=== PATIENT | female | born 1975 | race Caucasian/White ===

== ENCOUNTER → 2018-01-27 | Outpatient (CLI) | payer OTHER | LOC: M RAD 09:51 | DX: Z12.31 Encounter for screening mammogram for malignant neoplasm of breast (principal) | CPT/HCPCS: 77067 ==

== ENCOUNTER → 2018-03-26 | Outpatient (REF) | payer OTHER ==
[2018-03-26 18:52] LABS: APPEARANCE, URINE HAZY (CLEAR); BACTERIA, URINE AUTO NEGATIVE (NEGATIVE); BILIRUBIN, URINE AUTO NEGATIVE (NEGATIVE); BLOOD, URINE BLOOD 1+ (NEGATIVE); COLOR, URINE YELLOW (YELLOW); GLUCOSE, URINE (UA) AUTO NEGATIVE (NEGATIVE); KETONE, URINE AUTO NEGATIVE (NEGATIVE); LEUKOCYTE ESTERASE, URINE AUTO 1+ (NEGATIVE); NITRITE, URINE AUTO NEGATIVE (NEGATIVE); PROTEIN, URINE AUTO NEGATIVE (NEGATIVE); RBC, URINE AUTO 1 /HPF (0-3); SQUAMOUS EPITHELIAL CELL UR AU 2 /HPF (0-6); UROBILINOGEN, URINE AUTO 0.2 mg/dL (0.0-2.0); WBC, URINE AUTO 3 /HPF (0-3)
== END ==
LOC: M SMT 17:08
DX: N39.3 Stress incontinence (female) (male) (principal)

== ENCOUNTER 2019-08-12 12:39 | Inpatient (IN) | payer OTHER ==
[~2019-08-12] VITALS: Ht 165.1 cm; Wt 88.5 kg
[2019-08-12 13:15] LABS: BASO % 0.4 % (0.0-1.0); EOS # 0.2 10^3/uL (0.0-0.5); EOS % 3.3 % (0.0-3.0); HEMATOCRIT 40.1 % (36.0-47.0); HEMOGLOBIN 12.5 g/dl (12.0-15.5); LYMPH # 2.1 10^3/uL (1.5-5.0); LYMPH % 30.4 % (24.0-44.0); MEAN CORPUSCULAR HEMOGLOBIN 26.5 pg (27.0-33.0); MEAN CORPUSCULAR HGB CONC 31.2 g/dl (32.0-36.5); MEAN CORPUSCULAR VOLUME 85.1 fl (80.0-96.0); MONO # 0.4 10^3/uL (0.0-0.8); MONO % 6.2 % (0.0-5.0); NEUTROPHILS # 4.1 10^3/uL (1.5-8.5); NEUTROPHILS % 59.4 % (36.0-66.0); PLATELET COUNT, AUTOMATED 264 10^3/uL (150-450); RED BLOOD COUNT 4.71 10^6/uL (4.00-5.40)
[2019-08-12 13:40] LABS: BLOOD UREA NITROGEN 14 MG/DL (7-18); CALCIUM LEVEL 8.9 MG/DL (8.5-10.1); CARBON DIOXIDE LEVEL 28 MEQ/L (21-32); CHLORIDE LEVEL 105 MEQ/L (98-107); CREATININE FOR GFR 0.72 MG/DL (0.55-1.30); GLOMERULAR FILTRATION RATE > 60.0 (>58); GLUCOSE, FASTING 124 MG/DL (70-100); POTASSIUM SERUM 3.9 MEQ/L (3.5-5.1); SODIUM LEVEL 137 MEQ/L (136-145)
[2019-08-12] MEDS ORDERED: ISOVUE-370 76% 100ML VIAL (Q9967) As Ordered ONE (13:57)
[2019-08-12 15:01] LABS: ALBUMIN 3.9 GM/DL (3.2-5.2); ALT/SGPT 19 U/L (12-78); BILIRUBIN,TOTAL 0.4 MG/DL (0.2-1.0); TOTAL PROTEIN 8.1 GM/DL (6.4-8.2)
--- NOTE | 2019-08-12 15:14 | REP ---
CT ANGIOGRAM CHEST: TECHNIQUE: Axial contrast enhanced images from the thoracic inlet to the upper abdomen using 100 mL Isovue 370 intravenous contrast material with multiplanar reformations. There is no CT evidence of pulmonary embolism. There is no thoracic aortic aneurysm or dissection. Heart is normal in size. There is no pericardial effusion. There is no significant adenopathy in the axillary, mediastinal or hilar regions. There is a moderate right pleural effusion with adjacent mild right lung atelectasis/infiltrate. No left pleural effusion is seen. A few subcentimeter nodular opacities are seen in the left posterior costophrenic sulcus inferiorly. Visualized upper abdominal structures are unremarkable. IMPRESSION: No CT evidence of pulmonary embolism or aortic dissection. Moderate right pleural effusion with mild adjacent right lung atelectasis/infiltrate. Three subcentimeter nodular opacities in the left posterior costophrenic sulcus. Followup suggested. Electronically Signed by Lopez Yanes MD 08/12/2019 08:02 P
--- NOTE | 2019-08-12 15:43 | ECGEPIP ---
[facility] - ED Test Date: 2019-08-12 Pat Name: KYLEIGH POSADA Department: Room: - Gender: Female [employer]: JBrent : 1975 Requested By: Kassandra Choudhury Order Number: [id number] Reading MD: Kassandra Choudhury Measurements Intervals [place] Rate: 68 P: 18 MS: 161 QRS: 6 QRSD: 92 T: 29 QT: 377 QTc: 402 Interpretive Statements SINUS RHYTHM No prior Electronically Signed on 08-12-2019 15:43:25 EST by Kassandra Choudhury
[2019-08-12 17:20] VITALS: BP 130/86
[2019-08-12 22:00] VITALS: BP 131/80
[2019-08-12] MEDS: ACETAMINOPHEN 500 MG TAB PO SCH (22:11)
--- NOTE | 2019-08-12 23:48 | HPEPDOC ---
General Date of Admission Aug 12, 2019 at 16:41 Date of Service: Aug 12, 2019 Chief Complaint The patient is a 43-year-old female admitted with a reason for visit of Pleural Effusion. Source: Patient History of Present Illness 43 year old female with no Pmh presented to the ED on the instruction of Dr Jernigan for increasing cough, chest pain and sob with a persistently abnormal CXR in [facility] pulmonary office. The patient reported that she had pneumonia int beginning of june was treated with 10 days of levofloxacin and felt somewhat improved. Her cough and chest discomfort reduced significantly but did not completely resolve. So she was sent to Dr jernigan in end of june and early July. She had CXR then which also showed efussion . 5 days ago she again had a cough , cold , nasal congestion and then her chest pain again came back and she also started feeling shortness of breath and some chest heaviness. She was having sharp pleuritic pain on the right lower back worse with coughing about 5/10 in intensity for which she did take some ibuprofen which helped. She went to see pulmonary 2 days ago CXR was repeated still showed right pleural elusion. This was now felt to be loculated collection and Dr Jernigan felt it needed to be drained. So was called in today to come to the ED. CT chest in the ED showed Moderate right pleural effusion with mild adjacent right lung atelectasis/infiltrate. Three subcentimeter nodular opacities in the left p osterior costophrenic sulcus. Home Medications No Active Prescriptions or Reported Meds Allergies Coded Allergies: No Known Allergies (Unverified , 08/12/19) Past Medical History Medical History None Surgical History Cervical disc replacement in 2009 Family History Significant Family History: Cancer (pancreatic cancer in paternal grandmother), Diabetes (father and mother), Other (Protein S deficiecy in brother decreased, and father alive) Social History * Smoker: non-smoker Alcohol: rarely Drugs: denies A-FIB/CHADSVASC A-FIB History Current/History of A-Fib/PAF?: No Review of Systems Constitutional: Denies: Chills, Fever, Night Sweats Eyes: Denies: Pain, Vision change ENT: Reports: Sore Throat; Denies: Head Aches, Ear Pain, Dysphagia Skin: Denies: Rash, Lesions, Breakdown Pulmonary: Reports: Dyspnea, Cough, Pleuritic Chest Pain Cardiovascular: Reports: Orthopnea Gastrointestinal: Denies: Nausea, Vomiting, Abdominal Pain, Diarrhea Genitourinary: Denies: Dysuria, Frequency, Incontinence, Retention Musculoskeletal: Denies: Neck Pain, Back Pain, Joint Pain, Muscle Pain, Spasms Physical Examination General Exam: Positive: Alert, Cooperative, No Acute Distress Eye Exam: Positive: PERRLA, Conjunctiva & lids normal, EOMI; Negative: Sclera icteric ENT Exam: Positive: Atraumatic, Mucous membr. moist/pink, Pharynx Normal Neck Exam: Positive: Supple; Negative: JVD, thyromegaly Chest Exam: Positive: Normal air movement, Diminished (at the right base) Heart Exam: Positive: Rate Normal, Regular Rhythm, Normal S1, Normal S2; Negative: Murmurs, Rubs Abdomen Exam: Positive: Normal bowel sounds, Soft; Negative: Tenderness, Hepatospenomegaly Extremity Exam: Positive: Normal pulses; Negative: Clubbing, Cyanosis, Edema Skin Exam: Positive: Nl turgor and temperature; Negative: Breakdown, Lesion Neuro Exam: Positive: Normal Gait, Normal Speech, Cranial Nerves 3-12 NL, Reflexes 2+ Psych Exam: Positive: Mental status NL, Mood NL, Oriented x 3 Vital Signs Vital Signs Date Time Temp Pulse Resp B/P (MAP) Pulse Ox O2 Delivery O2 Flow Rate FiO2 08/12/19 17:20 97.8 78 19 130/86 (101) 98 Room Air Laboratory Data Labs 24H Laboratory Tests 2 08/12/19 13:02: Immature Granulocyte % (Auto) 0.3, Neutrophils (%) (Auto) 59.4, Lymphocytes (%) (Auto) 30.4, Monocytes (%) (Auto) 6.2H, Eosinophils (%) (Auto) 3.3H, Basophils (%) (Auto) 0.4, Neutrophils # (Auto) 4.1, Lymphocytes # (Auto) 2.1, Monocytes # (Auto) 0.4, Eosinophils # (Auto) 0.2, Basophils # (Auto) 0.0, Nucleated Red Blood Cells % (auto) 0.0, Anion Gap 4L, Glomerular Filtration Rate > 60.0, Calcium Level 8.9, Total Bilirubin 0.4, Aspartate Amino Transf (AST/SGOT) 8, Alanine Aminotransferase (ALT/SGPT) 19, Alkaline Phosphatase 84, Total Protein 8.1, Albumin 3.9, Albumin/Globulin Ratio 0.93L CBC/BMP Laboratory Tests 08/12/19 13:02 Microbiology Microbiology 08/12/19 Blood Culture, Received Pending 08/12/19 Respiratory Virus Panel (PCR) (JOURDAN) - Final, Complete 08/12/19 Blood Culture, Received Pending Assessment/Plan 43 year old female with no Pmh presented to the ED on the instruction of Dr Jernigan for increasing cough, chest pain and sob with a persistently abnormal CXR in [facility] pulmonary office. The patient reported that she had pneumonia int beginning of june was treated with 10 days of levofloxacin and felt somewhat improved. Her cough and chest discomfort reduced significantly but did not completely resolve. So she was sent to Dr jernigan in end of june and early July. She had CXR then which also showed efussion . 5 days ago she again had a cough , cold , nasal congestion and then her chest pain again came back and she also started feeling shortness of breath and some chest heaviness. She was having sharp pleuritic pain on the right lower back worse with coughing about 5/10 in intensity for which she did take some ibuprofen which helped. She went to see pulmonary 2 days ago CXR was repeated still showed right pleural elusion. This was now felt to be loculated collection and Dr Jernigan felt it needed to be drained. So was called in today to come to the ED. CT chest in the ED showed Moderate right pleural effusion with mild adjacent right lung atelectasis/infiltrate. Three subcentimeter nodular opacities in the left po sterior costophrenic sulcus. Right pleural effusion will plan for IR drainage tomorrow. Tylenol prn for pain Plan / VTE VTE Prophylaxis Ordered?: Yes JANUSZ CASTILLO MD Aug 12, 2019 23:48
[2019-08-13 06:00] VITALS: BP 117/71
[2019-08-13 06:07] LABS: HEMATOCRIT 36.7 % (36.0-47.0); HEMOGLOBIN 12.1 g/dl (12.0-15.5); MEAN CORPUSCULAR HEMOGLOBIN 27.7 pg (27.0-33.0); PLATELET COUNT, AUTOMATED 237 10^3/uL (150-450); RED BLOOD COUNT 4.37 10^6/uL (4.00-5.40); WHITE BLOOD COUNT 6.3 10^3/uL (4.0-10.0)
[2019-08-13 06:35] LABS: BLOOD UREA NITROGEN 14 MG/DL (7-18); CALCIUM LEVEL 8.5 MG/DL (8.5-10.1); CARBON DIOXIDE LEVEL 28 MEQ/L (21-32); CHLORIDE LEVEL 105 MEQ/L (98-107); CREATININE FOR GFR 0.72 MG/DL (0.55-1.30); GLOMERULAR FILTRATION RATE > 60.0 (>58); GLUCOSE, FASTING 100 MG/DL (70-100); POTASSIUM SERUM 3.8 MEQ/L (3.5-5.1); SODIUM LEVEL 139 MEQ/L (136-145)
[2019-08-13 07:28] LABS: INR 1.07; PROTHROMBIN TIME 13.6 SECONDS (11.8-14.0)
[2019-08-13 07:29] LABS: PARTIAL THROMBOPLASTIN TIME 30.9 SECONDS (25.0-38.4)
[2019-08-13] MEDS: ACETAMINOPHEN 500 MG TAB PO SCH ×2 (08:52→18:21)
--- NOTE | 2019-08-13 12:21 | REP ---
CHEST X-RAY: Two views. HISTORY: Status post right-sided thoracentesis under ultrasound guidance. No comparison chest x-ray. Comparison chest CT study 08/12/2019. FINDINGS: The patient appears to be status post discectomy and cervical fusion in the lower cervical spine. There is slight blunting of the right lateral pleural angle. There is a tiny collection of air suspected at the apex of the right lung. No significant pneumothorax is seen. Heart is not enlarged. Mediastinum is not widened. IMPRESSION: Tiny right apical pneumothorax seen. Slight blunting of the right lateral pleural angle. Otherwise negative. Electronically Signed by Ruiz Wilson MD 08/13/2019 02:24 P
[2019-08-13 12:28] VITALS: BP 131/83
--- NOTE | 2019-08-13 12:32 | REP ---
ULTRASOUND-GUIDED RIGHT THORACENTESIS PROCEDURE: HISTORY: Right pleural effusion. Comparison is made with CT study from August 12, 2019. TECHNIQUE: The patient was interviewed and informed consent was obtained by GABRIELLA Deras. The patient was placed in a seated position and preliminary sonographic scanning confirms the presence of right pleural effusion. The patient safety time-out was articulated and agreed upon. Under aseptic precautions and local anesthetic and sonographic localization, a right thoracentesis was attempted initially. The patient became vasovagal and had to be laid recumbent in reverse Trendelenburg. Her symptoms cleared. The procedure was then carried out by the id and with the patient in the left side down a right-side up decubitus position. Preliminary scanning showed an access point in the right posterolateral pleural space although the amount of fluid was less with the patient in this position. The patient safety time-out was again articulated and agreed upon. The skin was marked at this site. The area was prepped and draped. Another 10 mL of 1% lidocaine was instilled under sonographic guidance. The 5-[place] Skater catheter was passed under direct sonographic visualization into the right pleural space and a total of 300 mL of transparent yellow pleural fluid was withdrawn and submitted to the lab for analysis. The patient tolerated the procedure well. IMPRESSION: Right thoracentesis procedure under ultrasound guidance. Electronically Signed by Ruiz Wilson MD 08/13/2019 02:24 P
[2019-08-13 12:39] LABS: PH BODY FLUID 7.494 UNITS (NOT ESTABLISHED); SOURCE, BODY FLUID pH PLEURAL
[2019-08-13 12:58] LABS: AMYLASE, BODY FLUID 29 U/L (NOT ESTABLISHED); LDH, BODY FLUID 221 U/L (NOT ESTABLISHED); SOURCE, BODY FLUID AMYLASE PLEURAL; SOURCE, BODY FLUID GLUCOSE PLEURAL; SOURCE, BODY FLUID LDH PLEURAL; SOURCE, BODY FLUID TOT PROTEIN PLEURAL; TOTAL PROTEIN, BODY FLUID 5.8 G/DL (NOT ESTABLISHED)
[2019-08-13 13:29] LABS: APPEARANCE, BODY FLUID HAZY (CLEAR); PLEURAL FL COLOR YELLOW (COLORLESS); SOURCE, BODY FLUID PLEURAL
[2019-08-13 14:00] VITALS: BP 142/92
[2019-08-13 14:30] VITALS: BP 138/73
--- NOTE | 2019-08-13 18:00 | IPNPDOC ---
Subjective Date Seen The patient was seen on 08/13/19. Subjective Chief Complaint/HPI no complaints this morning. Had tapping by IR done . No complaints after procedure. Though during the procedure first try in sitting position she had a vasovagal episode so they stopped the procedure and then redid in left lat position with right side up. Small pneumo noted in CXR post procedure. Objective Physical Examination General Exam: Positive: Alert, Cooperative, No Acute Distress Eye Exam: Positive: PERRLA, Conjunctiva & lids normal, EOMI; Negative: Sclera icteric ENT Exam: Positive: Atraumatic, Mucous membr. moist/pink, Pharynx Normal Neck Exam: Positive: Supple; Negative: JVD, thyromegaly Chest Exam: Positive: Normal air movement, Diminished (at the right base) Heart Exam: Positive: Rate Normal, Regular Rhythm, Normal S1, Normal S2; Negative: Murmurs, Rubs Abdomen Exam: Positive: Normal bowel sounds, Soft; Negative: Tenderness, Hepatospenomegaly Extremity Exam: Positive: Normal pulses; Negative: Clubbing, Cyanosis, Edema Skin Exam: Positive: Nl turgor and temperature; Negative: Breakdown, Lesion Neuro Exam: Positive: Normal Gait, Normal Speech, Cranial Nerves 3-12 NL, Reflexes 2+ Psych Exam: Positive: Mental status NL, Mood NL, Oriented x 3 Assessment /Plan Assessment 43 year old female with no Pmh presented to the ED on the instruction of Dr Sue for increasing cough, chest pain and sob with a persistently abnormal CXR in [facility] pulmonary office. The patient reported that she had pneumonia in the beginning of june was treated with 10 days of levofloxacin and felt somewhat improved. Her cough and chest discomfort reduced significantly but did not completely resolve. So she was sent to Dr Sue in end of june and early July. She had CXR then which also showed effusion . 5 days ago she again had a cough , cold , nasal congestion and then her chest pain again came back and she also started feeling shortness of breath and some chest heaviness. She was having sharp pleuritic pain on the right lower back worse with coughing about 5/10 in intensity for which she did take some ibuprofen which helped. She went to see pulmonary 2 days ago CXR was repeated still showed right pleural elusion. This was now felt to be loculated collection and Dr Sue felt it needed to be drained. So was called in today to come to the ED. CT chest in the ED showed Moderate right pleural effusion with mild adjacent right lung atelectasis/infiltrate. Three subcentimeter nodular opacities in the left posterior costophrenic sulcus. Right pleural effusion 300 cc straw colored fluid drained. lymphocytic type with high WBC 93% monocytes. no antibiotics. Tylenol prn for pain Post procedure small pneumothorax will place on oxygen through non rebreather mask repeat CXR tomorrow. Plan/VTE VTE Prophylaxis Ordered?: Yes VS, I&O, 24H, Fishbone Vital Signs/I&O Vital Signs Date Time Temp Pulse Resp B/P (MAP) Pulse Ox O2 Delivery O2 Flow Rate FiO2 08/13/19 14:00 98.8 85 19 142/92 (109) 97 Room Air 08/13/19 11:45 95 I&O- Last 24 Hours up to 6 AM 08/13/19 06:00 Intake Total 600 ml Output Total 0 ml Balance 600 ml Laboratory Data 24H LABS Laboratory Tests 2 08/13/19 05:55: Nucleated Red Blood Cells % (auto) 0.0, Anion Gap 6L, Glomerular Filtration Rate > 60.0, Calcium Level 8.5 08/13/19 07:04: Prothrombin Time 13.6, Prothromb Time International Ratio 1.07, Activated Partial Thromboplast Time 30.9 08/13/19 11:45: Body Fluid pH 7.494, Body Fluid pH Source PLEURAL, Body Fluid WBC (Auto) 3652H, Body Fluid RBC (Auto) 3, Body Fluid Mononuclear Cells % Auto 93.4H, Fluid Polymorphonuclear Cell % Auto 6.6H, Body Fluid Glucose Source PLEURAL, Body Fluid Glucose 103, Body Fluid Protein Source PLEURAL, Body Fluid Total Protein 5.8, Body Fluid LDH Source PLEURAL, Body Fluid Lactate Dehydrogenase 221, Body Fluid Amylase Source PLEURAL, Body Fluid Amylase 29, Pleural Fluid Source PLEURAL, Pleural Fluid Color YELLOW, Pleural Fluid Appearance HAZY CBC/BMP Laboratory Tests 08/13/19 05:55 Microbiology Microbiology 08/13/19 Acid Fast Stain, Received Pending 08/13/19 Mycobacterial Culture, Received Pending 08/13/19 Fungal Smear, Received Pending 08/13/19 Fungal Culture, Received Pending 08/13/19 Gram Stain - Final, Resulted 08/13/19 Body Fluid Culture, Resulted Pending 08/12/19 Blood Culture - Preliminary, Resulted No growth after 24 hours . All specim... 08/12/19 Respiratory Virus Panel (PCR) (JOURDAN) - Final, Complete 08/12/19 Blood Culture - Preliminary, Resulted No growth after 24 hours . All specim... JANUSZ CASTILLO MD Aug 13, 2019 18:00
[2019-08-13 18:20] VITALS: BP 132/80
[2019-08-13] MEDS ORDERED: KETOROLAC 30 MG/ML VIAL (J1885) IV ONE (19:00)
--- NOTE | 2019-08-13 19:15 | REP ---
Portable chest x-ray: Single view. 06:47 p.m. film. History: Chest pain, increased shortness of breath. Status post thoracentesis with tiny right apical pneumothorax. Comparison study: 08/13/2019 12:01 p.m. film. Findings: There is a tiny right apical pneumothorax again noted. This appears a little smaller. No new infiltrate is seen. There is very slight residual blunting of the right lateral pleural angle. Cardiomediastinal silhouette is unremarkable. Impression: Tiny right apical pneumothorax, slightly decreased from the earlier film. No infiltrate or other new finding. Electronically Signed by Ruiz Wilson MD 08/13/2019 07:58 P
[2019-08-13 22:00] VITALS: BP 129/74
[2019-08-14 06:00] VITALS: BP 119/65
--- NOTE | 2019-08-14 08:08 | REP ---
Chest x-ray: Single view portably obtained. History: Followup pneumothorax. Comparison study: 06:47 p.m. 08/13/2019. Findings: There is a tiny bubble of right apical pleural air, yet again decreased in size. There is slight haziness blunting the right lateral pleural angle suggesting reaccumulation of right pleural fluid to some degree. The left lung remains clear. Heart is not enlarged. Electronically Signed by Ruiz Wilson MD 08/14/2019 08:00 A
[2019-08-14] MEDS: ACETAMINOPHEN 500 MG TAB PO SCH (08:41)
--- NOTE | 2019-08-14 13:00 | DS.PDOC ---
Discharge Summary General Date of Admission Aug 12, 2019 at 16:41 Date of Discharge 08/14/19 Discharge Summary PROCEDURES PERFORMED DURING STAY: [None]. DISCHARGE DIAGNOSES: Right sided chronic parapneumonic effusion lymphocytic. Post procedure pneumothorax COMPLICATIONS/CHIEF COMPLAINT: Pleural Effusion. HISTORY OF PRESENT ILLNESS: History and physical HOSPITAL COURSE: 43 year old female with no Pmh presented to the ED on the instruction of Dr Sue for increasing cough, chest pain and sob with a persistently abnormal CXR in the pulmonary office. The patient reported that she had pneumonia in the beginning of june was treated with 10 days of levofloxacin and felt somewhat improved. Her cough and chest discomfort reduced significantly but did not completely resolve. So she was sent to Dr Sue in end of June and early July. She had CXR then which also showed effusion . 5 days ago she again had a cough , cold , nasal congestion and then her chest pain again came back and she also started feeling shortness of breath and some chest heaviness. She was having sharp pleuritic pain on the right lower back worse with coughing about 5/10 in intensity for which she did take some ibuprofen which helped. She went to see pulmonary 2 days ago CXR was repeated still showed right pleural elusion. This was now felt to be loculated collection and Dr Sue felt it needed to be drained. So was called in today to come to the ED. CT chest in the ED showed Moderate right pleural effusion with mild adjacent right lung atelectasis/infiltrate. Three subcentimeter nodular opacities in the left posterior costophrenic sulcus. Right pleural effusion 300 cc straw colored fluid drained. lymphocytic type with high WBC 93% monocytes. no antibiotics. Tylenol/ motrin prn for pain Post procedure small pneumothorax improving. DISCHARGE MEDICATIONS: Please see below. ALLERGIES: Please see below. PHYSICAL EXAMINATION ON DISCHARGE: VITAL SIGNS: Please see below. General Exam: Positive: Alert, Cooperative, No Acute Distress Eye Exam: Positive: PERRLA, Conjunctiva & lids normal, EOMI; Negative: Sclera icteric ENT Exam: Positive: Atraumatic, Mucous membr. moist/pink, Pharynx Normal Neck Exam: Positive: Supple; Negative: JVD, thyromegaly Chest Exam: Positive: Normal air movement, Diminished (at the right base) Heart Exam: Positive: Rate Normal, Regular Rhythm, Normal S1, Normal S2; Negative: Murmurs, Rubs Abdomen Exam: Positive: Normal bowel sounds, Soft; Negative: Tenderness, Hepatospenomegaly Extremity Exam: Positive: Normal pulses; Negative: Clubbing, Cyanosis, Edema Skin Exam: Positive: Nl turgor and temperature; Negative: Breakdown, Lesion Neuro Exam: Positive: Normal Gait, Normal Speech, Cranial Nerves 3-12 NL, Reflexes 2+ Psych Exam: Positive: Mental status NL, Mood NL, Oriented x 3 LABORATORY DATA: Please see below. ACTIVITY: [As tolerated]. DIET: Regular DISCHARGE PLAN: Home DISPOSITION: . Dr Sue in 2 weeks with new CXR DISCHARGE CONDITION: [Stable]. TIME SPENT ON DISCHARGE: 35 minutes. Vital Signs/I&Os Vital Signs Date Time Temp Pulse Resp B/P (MAP) Pulse Ox O2 Delivery O2 Flow Rate FiO2 08/14/19 06:00 98.8 75 20 119/65 (83) 95 Non-Rebreather 08/13/19 11:45 95 I&O- Last 24 Hours up to 6 AM 08/14/19 06:00 Intake Total 2140 ml Output Total 250 ml Balance 1890 ml Microbiology Microbiology 08/13/19 Acid Fast Stain, Received Pending 08/13/19 Mycobacterial Culture, Received Pending 08/13/19 Fungal Smear, Received Pending 08/13/19 Fungal Culture, Received Pending 08/13/19 Gram Stain - Final, Resulted 08/13/19 Body Fluid Culture, Resulted Pending 08/12/19 Blood Culture - Preliminary, Resulted No growth after 24 hours . All specim... 08/12/19 Respiratory Virus Panel (PCR) (JOURDAN) - Final, Complete 08/12/19 Blood Culture - Preliminary, Resulted No growth after 24 hours . All specim... Discharge Medications No Active Prescriptions or Reported Meds Allergies Coded Allergies: No Known Allergies (Unverified , 08/12/19) JANUSZ CASTILLO MD Aug 14, 2019 13:00
--- NOTE | 2019-08-14 13:32 | REP ---
CHEST, TWO VIEWS: Two views of the chest are performed. I do not see a significant pneumothorax. There is blunting of the costophrenic angles bilaterally compatible with small effusions. There is mild bibasilar atelectasis/infiltrate. Heart and mediastinum are within normal limits. Electronically Signed by Lopez Yanes MD 08/14/2019 04:54 P
== END 2019-08-14 13:10 | disposition home or self-care (01) | DRG 187 ==
LOC: M ED 12:39 → M ED INP 16:41 → M MSPAV 17:25
PROVIDERS: ADMIT Internal Medicine Nephrology; ATTEND Internal Medicine Nephrology
PROC: 0W993ZZ Drainage of Right Pleural Cavity, Percutaneous Approach (ICD-10-PCS; principal; 2019-08-13 16:30)
DX: J90 Pleural effusion, not elsewhere classified (principal); J95.811 Postprocedural pneumothorax

== ENCOUNTER → 2020-01-26 | Outpatient (CLI) | payer OTHER ==
[~2020-01-26] MED LIST: METHACHOLINE KIT (J7674) INH ONE
--- NOTE | 2020-01-26 09:33 | PFTRPT ---
Height: 65.00 Inches Weight: 195.00 Lbs BSA: 1.96 Diagnosis: DYSPNEA DATE OF STUDY: 01/26/2020 ORDERED BY: Emmanuel Leigh DO INTERPRETATION: Study of excellent technical quality. Under protocol, methacholine was administered. At a dose of 2.5 mg or 13.875 CDUs, a 33% decline in the FEV1 was noted. PC of 0.86 is significant. Flow rates did return to baseline post bronchodilator administration. IMPRESSION: Positive methacholine challenge study. MTDD
== END ==
LOC: M CARPUL 08:35
PROVIDERS: ATTEND Internal Medicine Pulmonary Disease
DX: R06.00 Dyspnea, unspecified (principal)
CPT/HCPCS: 94070; J7674